=== PATIENT | female | born 1955 | race Caucasian/White ===

== ENCOUNTER 2019-12-24 08:50 | Outpatient (CLI) | payer MEDICARE ==
[~2019-12-24] VITALS: Ht 162.6 cm; Wt 70.0 kg
[2019-12-24 09:23] LABS: ANION GAP 10.1 mmol/L (8-16); CALCIUM 8.9 mg/dL (8.5-10.1); CREATININE - SERUM 0.9 mg/dL (0.6-1.3); POTASSIUM - SERUM 4.1 mmol/L (3.5-5.1)
[2019-12-24 09:35] LABS: BASOPHILS 0.6 % (0-2); EOSINOPHILS 2.8 % (0-7); HEMOGLOBIN 14.3 g/dL (12-16); IMMATURE GRANULOCYTES 0.1 % (0-5); LYMPHOCYTES 23.4 % (15-50); MCH 30.2 pg (26.0-34.0); MCHC 31.1 g/dL (31.0-37.0); MCV 97.3 fL (80.0-100.0); MEAN PLATELET VOLUME 9.3 fL (7.4-10.4); NEUTROPHILS 65.1 % (40-80); PLATELET COUNT 306 10x3/uL (130-400); RBC 4.73 10x6/uL (4.00-5.40); RDW 13.3 % (11.5-14.5); WBC 7.3 10x3/uL (4.8-10.8)
[2019-12-24] MEDS ORDERED: ULTRAM50 MG PO (10:08)
[2019-12-24] MEDS ORDERED: PREDNISONE2.5 MG (10:09)
[2019-12-24] MEDS ORDERED: LEVOXYL75 MCG (10:09)
[2019-12-24] MEDS ORDERED: AMITRIPTYLINE H50 MG PO (10:10)
[2019-12-24] MEDS ORDERED: AMBIEN10 MG PO (10:10)
[2019-12-24] MEDS ORDERED: VITAMIN D PO (10:11)
[2019-12-24 10:27] VITALS: BP 122/62; Ht 162.6 cm; Wt 70.0 kg
[2019-12-24 10:44] LABS: APTT 26.8 SECONDS (22.8-39.4); INR 0.99 (0.85-1.17); PROTIME 13.1 SECONDS (11.6-15.0)
== END 2019-12-24 14:30 | disposition home or self-care (01) ==
LOC: D.CT 08:50
PROVIDERS: General Practice; ATTEND Family Medicine
DX: J90 Pleural effusion, not elsewhere classified (principal); E03.9 Hypothyroidism, unspecified; E78.2 Mixed hyperlipidemia; I10 Essential (primary) hypertension; R05 Cough; E55.9 Vitamin D deficiency, unspecified; M79.7 Fibromyalgia; E66.9 Obesity, unspecified; Z68.30 Body mass index [BMI] 30.0-30.9, adult

== ENCOUNTER → 2020-03-09 10:41 | Outpatient (CLI) | payer MEDICARE ==
[2019-12-24 10:27] VITALS: BMI 26.5
[~2020-03-09 10:41] MED LIST: AMBIEN10 MG PO; AMITRIPTYLINE H50 MG PO; LEVOXYL75 MCG; PREDNISONE2.5 MG; ULTRAM50 MG PO; VITAMIN D PO
== END | disposition home or self-care (01) ==
LOC: D.LAB 10:41
PROVIDERS: ATTEND Internal Medicine Pulmonary Disease
DX: Z11.59 Encounter for screening for other viral diseases (principal)

== ENCOUNTER → 2020-03-11 08:13 | Outpatient (CLI) | payer MEDICARE ==
[2019-12-24 10:27] VITALS: BMI 26.5
== END | disposition home or self-care (01) ==
LOC: D.RT 08:00
PROVIDERS: ATTEND Internal Medicine Pulmonary Disease
DX: R06.09 Other forms of dyspnea (principal)

== ENCOUNTER 2020-03-18 08:55 | Outpatient (CLI) | payer MEDICARE ==
[~2020-03-18] VITALS: Ht 162.6 cm; Wt 71.8 kg
[2020-03-18 09:18] LABS: BASOPHILS 0.3 % (0-2); EOSINOPHILS 2.2 % (0-7); HEMATOCRIT 43.4 % (36.0-48.0); HEMOGLOBIN 13.7 g/dL (12-16); IMMATURE GRANULOCYTES 0.4 % (0-5); LYMPHOCYTES 20.1 % (15-50); MCH 30.9 pg (26.0-34.0); MCHC 31.6 g/dL (31.0-37.0); MEAN PLATELET VOLUME 9.1 fL (7.4-10.4); MONOCYTES 7.5 % (2-11); NEUTROPHILS 69.5 % (40-80); PLATELET COUNT 315 10x3/uL (130-400); RBC 4.43 10x6/uL (4.00-5.40); RDW 13.7 % (11.5-14.5); WBC 9.2 10x3/uL (4.8-10.8)
[2020-03-18 09:27] LABS: ANION GAP 10.8 mmol/L (8-16); CARBON DIOXIDE 28.1 mmol/L (21.0-32.0); CREATININE - SERUM 1.1 mg/dL (0.6-1.3); POTASSIUM - SERUM 3.9 mmol/L (3.5-5.1)
[2020-03-18 09:32] LABS: APTT 26.6 SECONDS (22.8-39.4); INR 0.98 (0.85-1.17)
[2020-03-18 10:22] VITALS: Ht 162.6 cm; Wt 71.8 kg
--- NOTE | 2020-03-18 15:05 | NUR ---
CXR IS NEGATIVE FOR PNEUMOTHORAX. WILL DC SHORTLY.
--- NOTE | 2020-03-18 15:18 | NUR ---
DC INSTRUCTIONS GIVEN TO PT/FAMILY. STATE UNDERSTANDING. DC'D IV CATH FULLY INTACT. PT LEFT UNIT VIA WC AT 1515
== END 2020-03-18 15:15 | disposition home or self-care (01) ==
LOC: D.SP 08:55 → D.CT 11:30 → D.SP 15:15
PROVIDERS: Specialist; ATTEND Family Medicine
DX: R06.00 Dyspnea, unspecified (principal); J90 Pleural effusion, not elsewhere classified; E03.9 Hypothyroidism, unspecified; E78.2 Mixed hyperlipidemia

== ENCOUNTER → 2020-04-05 12:39 | Outpatient (CLI) | payer MEDICARE ==
[2020-03-18 10:22] VITALS: BMI 27.1
== END | disposition home or self-care (01) ==
LOC: D.RAD 12:39
PROVIDERS: ATTEND Internal Medicine Pulmonary Disease
DX: R06.00 Dyspnea, unspecified (principal)

== ENCOUNTER 2020-04-06 05:51 | Outpatient (CLI) | payer MEDICARE ==
[~2020-04-06] VITALS: Ht 162.6 cm; Wt 70.0 kg
[2020-04-06 06:24] LABS: BASOPHILS 0.5 % (0-2); EOSINOPHILS 3.2 % (0-7); HEMATOCRIT 41.5 % (36.0-48.0); HEMOGLOBIN 13.1 g/dL (12-16); IMMATURE GRANULOCYTES 0.4 % (0-5); LYMPHOCYTES 21.3 % (15-50); MCH 30.8 pg (26.0-34.0); MCHC 31.6 g/dL (31.0-37.0); MCV 97.4 fL (80.0-100.0); MEAN PLATELET VOLUME 9.1 fL (7.4-10.4); MONOCYTES 8.2 % (2-11); NEUTROPHILS 66.4 % (40-80); PLATELET COUNT 321 10x3/uL (130-400); RBC 4.26 10x6/uL (4.00-5.40); RDW 13.5 % (11.5-14.5); WBC 7.8 10x3/uL (4.8-10.8)
[2020-04-06 06:27] LABS: APTT 27.6 SECONDS (22.8-39.4); INR 0.96 (0.85-1.17); PROTIME 12.7 SECONDS (11.6-15.0)
[2020-04-06 06:39] LABS: ANION GAP 9.4 mmol/L (8-16); CALCIUM 8.9 mg/dL (8.5-10.1); CARBON DIOXIDE 28.5 mmol/L (21.0-32.0); POTASSIUM - SERUM 3.9 mmol/L (3.5-5.1); PROTEIN - SERUM 6.6 g/dL (6.4-8.2)
[2020-04-06 07:26] VITALS: BP 106/64; Ht 162.6 cm; Wt 70.0 kg
[2020-04-06 10:14] LABS: PROTEIN - BODY FLUID 4.1 G/DL
[2020-04-06 10:38] LABS: NEUT - BF 1 %
[2020-04-06 10:39] LABS: EOS BF 2 %; MACROPHAGES BF 42 %; MESOTHELIALS BF 11 %
--- NOTE | 2020-04-06 11:25 | NUR ---
1125 PCXR HERE AND DONE. TOLERATED WELL.PT STATED SHE HURTS ONLY WHEN SHE TAKES A DEEP BREATH
--- NOTE | 2020-04-06 12:51 | NUR ---
1230 IV REMOVED AND PRESSURE HELD. INSTRUCTIONS GIVEN
[2020-04-07 18:09] LABS: ACID FAST SMEAR Negative (()); AFB SPECIMEN PROCESSING Concentration (())
[2020-04-08 10:12] LABS: FUNGUS STAIN Final report (())
== END 2020-04-06 12:35 | disposition home or self-care (01) ==
LOC: D.SP 05:51 → D.CT 13:00
PROVIDERS: Internal Medicine Pulmonary Disease; Specialist; ATTEND Internal Medicine Pulmonary Disease
DX: J90 Pleural effusion, not elsewhere classified (principal); R06.00 Dyspnea, unspecified; Z87.01 Personal history of pneumonia (recurrent); M79.7 Fibromyalgia; G47.9 Sleep disorder, unspecified; Z87.891 Personal history of nicotine dependence

== ENCOUNTER 2020-04-21 11:26 | Day surgery (SDC) | payer MEDICARE ==
[~2020-04-21] VITALS: Ht 162.6 cm; Wt 68.6 kg
[2020-04-21 12:04] LABS: BASOPHILS 0.4 % (0-2); EOSINOPHILS 2.9 % (0-7); HEMATOCRIT 38.8 % (36.0-48.0); HEMOGLOBIN 12.3 g/dL (12-16); IMMATURE GRANULOCYTES 0.5 % (0-5); LYMPHOCYTES 18.8 % (15-50); MCH 30.3 pg (26.0-34.0); MCHC 31.7 g/dL (31.0-37.0); MCV 95.6 fL (80.0-100.0); MEAN PLATELET VOLUME 8.8 fL (7.4-10.4); MONOCYTES 8.4 % (2-11); PLATELET COUNT 337 10x3/uL (130-400); RBC 4.06 10x6/uL (4.00-5.40); RDW 13.3 % (11.5-14.5); WBC 8.3 10x3/uL (4.8-10.8)
[2020-04-21 12:13] LABS: ANION GAP 7.6 mmol/L (8-16); CALCIUM 8.6 mg/dL (8.5-10.1); CREATININE - SERUM 0.9 mg/dL (0.6-1.3); POTASSIUM - SERUM 3.6 mmol/L (3.5-5.1)
[2020-04-21 12:19] LABS: APTT 28.6 SECONDS (22.8-39.4); INR 0.98 (0.85-1.17); PROTIME 12.9 SECONDS (11.6-15.0)
[2020-04-21] MEDS ORDERED: ACETAMINOPHEN500 M1 PO (12:24)
[2020-04-21 12:37] VITALS: BP 139/75; Ht 162.6 cm; Wt 68.6 kg
--- NOTE | 2020-04-21 12:58 | NUR ---
1245 FRANKIE IN SPECIALS WAS NOTIFIED OF PT EATING CEREAL AT 0800 THIS AM. PT STATES SHE WAS TOLD BY DR MEADOWS'S OFFICE YESTERDAY THAT SHE WAS HAVING AN ULTRASOUND AND THAT SHE COULD HAVE A LIGHT BREAKFAST THIS MORNING. 1259 PCXR PERFORMED AT BEDSIDE IN ROOM 2510.
--- NOTE | 2020-04-21 16:16 | NUR ---
1602-CHEST XRAY COMPLETE. AWAITING RESULTS FOR FURTHER DISCHARGE PLANNING.
--- NOTE | 2020-04-21 17:11 | NUR ---
1653-DISCHARGE CRITERIA MET. REMOVED IV WITH CATH INTACT, DISPOSED INTO SHARPS,COVERED WITH GUAZE, SECURED WITH MEDIPORE TAPE.
--- NOTE | 2020-04-21 17:12 | NUR ---
1700-PT DRESSED. REVIEWED DISCHARGE INSTRUCTIONS. VERBALIZED UNDERSTANDING.NO DISTRESS.VSS.DRESSING CDI.
[2020-04-21 17:15] LABS: PROTEIN - BODY FLUID 4.2 G/DL
[2020-04-21 18:19] LABS: MACROPHAGES BF 6 %
[2020-04-23 15:10] LABS: ACID FAST SMEAR Negative (()); AFB SPECIMEN PROCESSING Concentration (())
[2020-04-25 14:09] LABS: FUNGUS STAIN Final report (())
== END 2020-04-21 17:00 | disposition home or self-care (01) ==
LOC: D.SP 11:26 → EDSTATUS 13:00 → D.US 13:00 → D.CT 13:00 → D.SP 17:00
PROVIDERS: Radiology Vascular & Interventional Radiology; ATTEND Internal Medicine Pulmonary Disease
DX: J91.0 Malignant pleural effusion (principal); R06.00 Dyspnea, unspecified; R06.09 Other forms of dyspnea; Z87.01 Personal history of pneumonia (recurrent); M79.7 Fibromyalgia; G47.9 Sleep disorder, unspecified; Z87.891 Personal history of nicotine dependence